=== PATIENT | male | born 1985 | race Caucasian/White ===

== ENCOUNTER 2023-07-05 21:37 | Emergency (ER) | payer OTHER ==
[~2023-07-05] VITALS: Ht 182.9 cm; Wt 81.6 kg
[2023-07-05 21:42] VITALS: BP 127/75; TEMP 98.6
[2023-07-05 23:03] VITALS: O2SAT 98
== END 2023-07-05 23:04 ==
LOC: ER 21:39
DX: R06.02 Shortness of breath (principal)
CPT/HCPCS: 71045-TC

== ENCOUNTER 2023-10-22 15:57 | Emergency (ER) | payer OTHER ==
[~2023-10-22] VITALS: Ht 185.4 cm; Wt 90.7 kg
[2023-10-22 16:30] VITALS: BP 152/111; TEMP 98.2
[2023-10-22 19:00] VITALS: O2SAT 99
== END 2023-10-22 19:01 | disposition home or self-care (01) ==
LOC: ER 16:05
DX: J02.9 Acute pharyngitis, unspecified (principal); R05.9 Cough, unspecified; Z20.822 Contact with and (suspected) exposure to COVID-19
CPT/HCPCS: 71045-TC